=== PATIENT | female | born 1975 | race African-American/Black ===

== ENCOUNTER 2018-06-19 19:47 | Emergency (ER) | payer OTHER ==
[~2018-06-19] VITALS: Ht 157.5 cm; Wt 73.5 kg
[2018-06-19] MEDS ORDERED: AZITHROMYCIN 250 MG TABLET PO ONE (22:00)
[2018-06-19] MEDS ORDERED: AZITHROMYCIN 250 MG TABLET ONE (22:43)
--- NOTE | 2018-06-19 22:45 | NUR ---
PATIENT MEDICATED ORDERED
[2018-06-19 22:53] VITALS: BP 122/71
== END 2018-06-19 22:55 | disposition home or self-care (01) ==
LOC: ER 19:52
DX: J02.9 Acute pharyngitis, unspecified (principal); E78.5 Hyperlipidemia, unspecified; I25.2 Old myocardial infarction; F41.9 Anxiety disorder, unspecified; F32.9 Major depressive disorder, single episode, unspecified; I25.10 Atherosclerotic heart disease of native coronary artery without angina pectoris; D64.9 Anemia, unspecified; G62.9 Polyneuropathy, unspecified; Z90.710 Acquired absence of both cervix and uterus; Z98.890 Other specified postprocedural states
CPT/HCPCS: 86403-TC; 87070-TC

== ENCOUNTER 2019-03-01 13:03 | Inpatient (IN) | payer OTHER ==
[~2019-03-01] VITALS: Ht 157.5 cm; Wt 67.6 kg
--- NOTE | 2019-03-01 13:12 | NUR ---
[id number], CAME TO ER C/O "MY POTASSIUM IS LOW" PER PATIENT REPORT. RR IS EVEN AND UNLABORED WITH NAD NOTED. SKIN IS WARM AND NON DIAPHORETIC. PLACED ON THE MONITOR. AWAITING MD FOR EVAL.
[2019-03-01] MEDS ORDERED: LORAZEPAM INJ 2 MG/ML VIAL IV ONE (13:30)
[2019-03-01] MEDS ORDERED: IV NS 0.9% 1,000 ML BAG IV ONE (13:30)
[2019-03-01] MEDS ORDERED: LORAZEPAM INJ 2 MG/ML VIAL ONE (13:35)
[2019-03-01 13:38] LABS: BASOPHILS % (AUTO) 0.7 % (0.0-2.0); EOSINOPHILS % (AUTO) 3.2 % (0.0-6.0); HEMATOCRIT 34 % (33-45); HEMOGLOBIN 11.5 g/dL (11.5-14.8); LYMPHOCYTES # (AUTO) 2.1 /CMM (0.8-4.8); LYMPHOCYTES % (AUTO) 35.3 % (20.0-44.0); MEAN CORPUSCULAR HGB CONC 34 g/dl (31.0-36.0); MEAN CORPUSCULAR VOLUME 93 fL (82-100); MONOCYTES # (AUTO) 0.3 /CMM (0.1-1.30); MONOCYTES % (AUTO) 4.6 % (2.0-12.0); NEUTROPHILS # (AUTO) 3.3 /CMM (1.8-8.9); NEUTROPHILS % (AUTO) 56.2 % (43.0-81.0); PLATELET COUNT (AUTO) 560 /CMM (150-450); RED BLOOD CELL COUNT(AUTO) 3.61 MIL/uL (4.0-5.2); WHITE BLOOD COUNT (AUTO) 5.9 K/uL (4.3-11.0)
--- NOTE | 2019-03-01 13:58 | NUR ---
RAPID FLU SWAB SENT TO LAB
[2019-03-01 13:59] LABS: ALBUMIN 3.1 g/dL (3.4-5.0); BILIRUBIN,DIRECT 0.1 mg/dL (0.0-0.2); BILIRUBIN,TOTAL 0.4 mg/dL (0.2-1.0); CALCIUM, SERUM 9.1 mg/dL (8.5-10.1); CREATININE 0.9 mg/dL (0.6-1.3); TOTAL PROTEIN, SERUM 7.5 g/dL (6.4-8.2)
[2019-03-01 14:02] LABS: POTASSIUM 2.1 mmol/L (3.5-5.1)
[2019-03-01] MEDS ORDERED: POTASSIUM CL. PREMIX PERIPHER. 200 ML ONE (14:15)
[2019-03-01 14:19] LABS: MAGNESIUM 2.2 mg/dL (1.8-2.4); PHOSPHORUS 3.2 mg/dL (2.5-4.9)
[2019-03-01] MEDS ORDERED: POTASSIUM CHLORIDE 20 MEQ TAB.PRT.SR PO ONE ×2 (14:30→14:34)
[2019-03-01] MEDS: POTASSIUM CL. PREMIX PERIPHER. 50 ML IV SCH ×4 (14:31→17:30)
--- NOTE | 2019-03-01 14:35 | NUR ---
OTTONIEL LEVIN, DNP AT FOR NICHOLE.
--- NOTE | 2019-03-01 14:53 | NUR ---
verbal auth from declan for obs
[2019-03-01] MEDS ORDERED: MELO-107 PO (15:15)
[2019-03-01] MEDS ORDERED: ONDA4TAB5 PO (15:15)
[2019-03-01] MEDS ORDERED: CYAN500T64 PO (15:15)
[2019-03-01] MEDS ORDERED: GABA250S PO (15:15)
[2019-03-01] MEDS ORDERED: CYCL5TAB PO (15:15)
[2019-03-01] MEDS ORDERED: ATOR10TA PO (15:15)
[2019-03-01] MEDS ORDERED: FERR325T23 PO (15:15)
[2019-03-01] MEDS ORDERED: PREN1TAB22 PO (15:15)
[2019-03-01] MEDS ORDERED: OMEP40CA13 PO (15:15)
[2019-03-01] MEDS ORDERED: GABA250S2 PO (15:15)
[2019-03-01] MEDS ORDERED: DULO60CA45 PO (15:15)
[2019-03-01] MEDS ORDERED: ZOLP10TA6 PO (15:15)
[2019-03-01] MEDS ORDERED: PARO40TA PO (15:15)
[2019-03-01] MEDS ORDERED: CHOL200026 PO (15:15)
[2019-03-01] MEDS ORDERED: DESO15OI3 TP (15:15)
[2019-03-01] MEDS ORDERED: SUCR1TAB PO (15:15)
[2019-03-01] MEDS ORDERED: DIAZ10TA4 PO (15:15)
[2019-03-01] MEDS ORDERED: IV NS 0.9% 1,000 ML IV PRN (15:55)
[2019-03-01] MEDS ORDERED: ONDANSETRON HCL/PF 4 MG/2 ML VIAL IVP PRN (16:00)
[2019-03-01] MEDS ORDERED: ACETAMINOPHEN 325 MG TABLET PO PRN (16:00)
[2019-03-01] MEDS ORDERED: MAGNESIUM HYDROXIDE 30 ML UDC PO PRN (16:00)
[2019-03-01] MEDS ORDERED: MORPHINE SULFATE INJ 2 MG/ML DISP.SYRIN IV PRN (16:00)
[2019-03-01] MEDS ORDERED: Z GUARD REMEDY 2 OZ OINT TP PRN (16:00)
[2019-03-01] MEDS ORDERED: MAG HYDROX/AL HYDROX/SIMETH 30 ML UDC PO PRN (16:00)
[2019-03-01] MEDS ORDERED: ZOLPIDEM TARTRATE 5 MG TABLET PO PRN (16:00)
[2019-03-01] MEDS ORDERED: DESOXIMETASONE TP PRN (16:00)
[2019-03-01] MEDS ORDERED: HYDROCODONE/APAP 5/325MG 1 EACH TABLET PO PRN (16:00)
--- NOTE | 2019-03-01 18:18 | NUR ---
GOT BED 312-2
--- NOTE | 2019-03-01 18:26 | NUR ---
REPORT GIVEN TO RUDDY OF TELE UNIT
[2019-03-01 18:27] LABS: CALCIUM, SERUM 8.3 mg/dL (8.5-10.1); CREATININE 0.8 mg/dL (0.6-1.3)
[2019-03-01 18:32] LABS: POTASSIUM 2.5 mmol/L (3.5-5.1)
--- NOTE | 2019-03-01 19:19 | NUR ---
MS/RN ADMITTING NOTE Report received via telephone from [facility] in the ER. Patient arrived on the unit at 1845. Tele monitor SR 80s, BP 149/75, T 98.0, O2 95% on RA. No complaints of pain at this time. IV line in the RAC in clean and patent running the last bag of potassium started in the ER (Potassium at 50ml/hr with NS @ 150ml/hr). Patient is A/O x4, ambulatory, appears anxious with family at the bedside. Bed is in lowest position, side rails x2 in upright position, call light is within reach and patient is aware of how to call for assistance when needed. Will endorse to anchorman.
[2019-03-01 20:00] VITALS: BP 116/75
--- NOTE | 2019-03-01 21:29 | NUR ---
MS/ORQUIDEA/RN ON INITIAL SHIFT ROUND AT AROUND 19:30, RECEIVED PATIENT LYING IN BED AWAKE ALERT ORIENTED, COMFORTABLE, NO SIGNS OF DISTRESS NOTED. PATIENT WAS A NEW ADMIT DS. HYPOKALEMIA, K LEVEL IN E.R WAS 2.17, WAS REPLACED WITH KCL 4 BAGS IV, WHO ARRIVED THE FLOOR AT AROUND 1845 TODAY FROM E.R. PER DAY SHIFT RN. PATIENT LATER ON C/O OF BEING UNCOMFORTABLE OF HER IV, EXPLAINED TO THE PATIENT THAT THE POTASSIUM IS INFUSING THAT POSSIBLY CAUSING THE DISCOMFORT BUT PATIENT INSISTED TO HAVE THE IV REMOVED. THE IV WAS REMOVED AFTER THE POTASSIUM INFUSION. AT AROUND 20:00, THE PATIENT ASKED IF HER SIGNIFICANT OTHER CAN STAY OVERNIGHT, EXPLAINED TO THE PATIENT THAT PER HOSPITAL POLICY NO VISITOR CAN STAY. CHARGE NURSE ALSO TALKED TO THE PATIENT, CHARGE NURSE CALLED THE NURSING FIBER GLASS WORKER TA WHO REFUSED THE PATIENT'S REQUEST. DR. SUMANTH PEÑA WAS NOTIFIED. PATIENT MADE AWARE, PATIENT DECIDED TO GO AMA, EXPLAINED OF THE RISKS OF GOING AMA, PATIENT VERBALIZED UNDERSTANDING, PATIENT REFUSED TO SIGN THE AMA PAPERWORK. PATIENT LEFT THE FLOOR AT AROUND 21:25 IN STABLE CONDITION.
[2019-03-01] MEDS ORDERED: GABAPENTIN 100 MG CAPSULE PO SCH (22:00)
[2019-03-01] MEDS: ASPIRIN 81 MG TAB.CHEW PO SCH (23:33)
[2019-03-01] MEDS: DULOXETINE HCL 30 MG CAPSULE.DR PO SCH (23:34)
[2019-03-01] MEDS: GABAPENTIN 300 MG CAPSULE PO SCH (23:34)
[2019-03-01] MEDS: FERROUS SULFATE (325 MG) 325 MG/TAB TABLET PO SCH (23:35)
[2019-03-01] MEDS: CYCLOBENZAPRINE 10 MG TABLET PO SCH (23:35)
[2019-03-01] MEDS: DIAZEPAM 10 MG TABLET PO PRN (23:59)
[2019-03-02] VITALS: BP 112/70
--- NOTE | 2019-03-02 00:23 | NUR ---
MS/RN POTASSIUM 10 MEQ IV WAS ALREADY GIVEN PER DAY SHIFT RN REPORT.
--- NOTE | 2019-03-02 00:24 | NUR ---
MS/TELE/RN PATIENT CAME BACK AT AROUND 2230, WALKED TO THE ROOM, PATIENT WAS AWAKE, ALERT, ORIENTED, COMFORTABLE, NO C/O PAIN, NO DISTRESS NOTE, DR. SUMANTH PEÑA NOTIFIED. ADMISSION WAS DONE PER PROTOCOL, PLAN OF CARE DISCUSSED AND VERBALIZED UNDERSTANDING AND AGREEMENT TO THE PLAN, TAUGHT THE USE OF CALL LIGHT AND PLACED IT AT BEDSIDE WITHIN REACH. WILL MONITOR.
--- NOTE | 2019-03-02 01:00 | NUR ---
MS/TELE/RN PATIENT IS SLEEPING AT THIS TIME, APPEAR COMFORTABLE, NO SIGNS OF DISTRESS NOTED, CALL LIGHT IN REACH. WILL CONTINUE TO MONITOR.
[2019-03-02 04:00] VITALS: BP 114/73
--- NOTE | 2019-03-02 06:14 | NUR ---
MS/TELE/RN PATIENT IS STILL SLEEPING AT THIS TIME, APPEAR COMFORTABLE, NO SIGNS OF DISTRESS NOTED, ALL NEEDS ATTENDED AT THIS TIME, WILL CONTINUE TO MONITOR.
--- NOTE | 2019-03-02 07:20 | NUR ---
FLAKE OR SHRED ROLL OPERATOR OPENING NOTES RECEIVED PT IN BED, ASLEEP, EASILY AROUSED. A/O X4. PT TOLERATING RA, WITH NO ACUTE RESPIRATORY DISTRESS NOTED. PT DENIES PAIN OR DISCOMFORT AT THIS TIME. PT DENIES ANY CONCERNS OR QUESTIONS AT THE MOMENT WELL. ON TELEMONITORING WITH SR 86. PIV LEFT HAND G22, FLUSHED WITH NS, INTACT AND OPERATIONAL. PT KEPT COMFORTABLE IN BED. CALL LIGHT KEPT WITHIN REACH. PT'S BED IN LOWEST, LOCKED POSITION WITH SRX3. WILL CONTINUE PLAN OF CARE.
[2019-03-02 07:47] LABS: BASOPHILS % (AUTO) 0.7 % (0.0-2.0); EOSINOPHILS % (AUTO) 5.9 % (0.0-6.0); HEMATOCRIT 29 % (33-45); LYMPHOCYTES # (AUTO) 1.9 /CMM (0.8-4.8); LYMPHOCYTES % (AUTO) 44.3 % (20.0-44.0); MEAN CORPUSCULAR HGB CONC 34 g/dl (31.0-36.0); MEAN CORPUSCULAR VOLUME 94 fL (82-100); MONOCYTES # (AUTO) 0.4 /CMM (0.1-1.30); MONOCYTES % (AUTO) 9.3 % (2.0-12.0); NEUTROPHILS # (AUTO) 1.7 /CMM (1.8-8.9); NEUTROPHILS % (AUTO) 39.8 % (43.0-81.0); PLATELET COUNT (AUTO) 535 /CMM (150-450); RED BLOOD CELL COUNT(AUTO) 3.14 MIL/uL (4.0-5.2); WHITE BLOOD COUNT (AUTO) 4.3 K/uL (4.3-11.0)
[2019-03-02 07:51] LABS: CALCIUM, SERUM 8.2 mg/dL (8.5-10.1); CARBON DIOXIDE 26 mmol/L (21-32); CHLORIDE 109 mmol/L (98-107); CREATININE 0.8 mg/dL (0.6-1.3); GLUCOSE 91 mg/dL (74-106); MAGNESIUM 2.1 mg/dL (1.8-2.4); PHOSPHORUS 3.1 mg/dL (2.5-4.9); SODIUM SERUM 144 mmol/L (136-145); UREA NITROGEN, BLOOD 6 mg/dL (7-18)
[2019-03-02 08:00] VITALS: BP 123/69
[2019-03-02 08:08] LABS: CHOLESTEROL 160 mg/dL (<200); HDL CHOLESTEROL 30 mg/dL (40-60); LDL 113 mg/dL (0-99); TRIGLYCERIDES 116 mg/dL (30-150)
[2019-03-02 08:09] LABS: POTASSIUM 2.7 mmol/L (3.5-5.1)
[2019-03-02] MEDS: ASPIRIN 81 MG TAB.CHEW PO SCH (08:19)
[2019-03-02] MEDS: PANTOPRAZOLE 40 MG TABLET.DR PO SCH (08:19)
[2019-03-02] MEDS: GABAPENTIN 100 MG CAPSULE PO SCH (08:20)
[2019-03-02] MEDS: CYCLOBENZAPRINE 10 MG TABLET PO SCH ×3 (08:20→16:58)
[2019-03-02] MEDS: FERROUS SULFATE (325 MG) 325 MG/TAB TABLET PO SCH ×2 (08:20→16:58)
[2019-03-02] MEDS: CYANOCOBALAMIN 500 MCG TABLET PO SCH (08:21)
[2019-03-02] MEDS: CHOLECALCIFEROL 1,000 UNIT TABLET (VIT D3) PO SCH (08:21)
[2019-03-02] MEDS: PAROXETINE HCL 20 MG TABLET PO SCH (08:21)
[2019-03-02] MEDS: MELOXICAM 7.5 MG TABLET PO SCH (08:22)
[2019-03-02] MEDS: DULOXETINE HCL 30 MG CAPSULE.DR PO SCH ×2 (08:24→21:47)
[2019-03-02] MEDS: SUCRALFATE 1 G TABLET PO SCH (08:29)
[2019-03-02 08:50] LABS: IRON, SERUM 108 ug/dl (50-175); TOTAL IRON BINDING CAPACITY 110 ug/dl (250-450)
[2019-03-02] MEDS ORDERED: ATORVASTATIN 10 MG TABLET PO SCH (09:00)
[2019-03-02] MEDS ORDERED: CYANOCOBALAMIN 500 MCG TABLET PO SCH (09:00)
[2019-03-02] MEDS ORDERED: GABAPENTIN 100 MG CAPSULE PO SCH (09:00)
[2019-03-02 09:25] LABS: CHOLESTEROL 156 mg/dL (<200); FERRITIN 239 ng/mL (8-388); HDL CHOLESTEROL 29 mg/dL (40-60); LDL 117 mg/dL (0-99); TRIGLYCERIDES 106 mg/dL (30-150)
[2019-03-02] MEDS: DIAZEPAM 10 MG TABLET PO PRN (10:54)
[2019-03-02] MEDS: POTASSIUM CHLORIDE 20 MEQ TAB.PRT.SR PO SCH ×2 (10:54→14:30)
[2019-03-02] MEDS ORDERED: POTASSIUM CHLORIDE 10 MEQ/50 ML PREMIXED IVPB FOR PERIPHERAL LINE IV ONE (11:00)
[2019-03-02 11:17] LABS: APPEARANCE,URINE SL CLOUDY (CLEAR); BILIRUBIN,URINE NEGATIVE (NEGATIVE); BLOOD, URINE NEGATIVE Ery/uL (NEGATIVE); COLOR,URINE YELLOW (YELLOW); KETONES,URINE NEGATIVE (NEGATIVE); LEUKOCYTE ESTERASE ,URINE NEGATIVE (NEGATIVE); NITRITE, URINE NEGATIVE (NEGATIVE); PROTEIN,URINE NEGATIVE (NEGATIVE); UGLUCOSE NEGATIVE (NEGATIVE); UROBILINOGEN,URINE 0.2 EU/dL (0.2)
[2019-03-02 16:14] VITALS: BP 134/79
[2019-03-02] MEDS: CLOTRIMAZOLE/BETAMETASONE DIPROPIONATE 15 GM TUBE TP SCH (16:59)
[2019-03-02] MEDS: DIAZEPAM 5 MG TABLET PO PRN (16:59)
[2019-03-02 18:31] LABS: CALCIUM, SERUM 8.5 mg/dL (8.5-10.1); CREATININE 0.8 mg/dL (0.6-1.3); POTASSIUM 3.5 mmol/L (3.5-5.1)
--- NOTE | 2019-03-02 18:52 | NUR ---
STOCK DRIVER CLOSING NOTES PT REMAINS IN BED, AWAKE, A/O X4. PT TOLERATING RA, WITH NO ACUTE RESPIRATORY DISTRESS NOTED. PT DENIES PAIN OR DISCOMFORT AT THIS TIME. ON TELEMONITORING WITH SR 85. PIV LEFT HAND G22, FLUSHED WITH NS, INTACT AND OPERATIONAL. PT KEPT COMFORTABLE IN BED. ALL NEEDS AND CARE ATTENDED. CALL LIGHT KEPT WITHIN REACH. PT'S BED IN LOWEST, LOCKED POSITION WITH SRX3. WILL ENDORSE TO INCOMING TARGET MAN NURSE FOR FRANCESCA.
--- NOTE | 2019-03-02 19:20 | NUR ---
RN OPENING NOTES RECEIVED PATIENT AWAKE IN BED, TALKING ON THE PHONE. A/O X 4. PATIENT ABLE TO VERBALIZE NEEDS. NO SIGNS OF RESPIRATORY DISTRESS, NO SHORTNESS OF BREATH NOTED, BREATHING EVEN AND UNLABORED. TELE READING SR. NO COMPLAINTS OF PAIN OR DISCOMFORT AT THIS TIME. IV SITES L HAND #22 AND RFA #22 BOTH SL, INTACT, PATENT, NO SIGNS OF INFECTION/INFILTRATION. SAFETY PRECAUTIONS IMPLEMENTED; CALL LIGHT WITHIN REACH, BED LOW, BED LOCKED, BILATERAL UPPER SIDE RAILS UP. WILL CONTINUE TO MONITOR.
[2019-03-02 20:00] VITALS: BP 133/83
[2019-03-02 21:26] VITALS: BP 133/83
[2019-03-02] MEDS: GABAPENTIN 300 MG CAPSULE PO SCH (22:11)
[2019-03-02 23:15] LABS: CHLORIDE,URINE RANDOM 231 mmol/L (55-125); POTASSIUM RNDM,URINE 35 mmol/L (25-125); URINE SODIUM, RANDOM 161 mmol/l (40-220)
[2019-03-02 23:40] LABS: OSMOLALITY,URINE 623 mOS/kg (340-1090)
[2019-03-03] VITALS: BP 108/75
[2019-03-03 00:54] VITALS: BP 108/75
[2019-03-03] MEDS: DIAZEPAM 5 MG TABLET PO PRN ×2 (01:00→11:49)
[2019-03-03 04:00] VITALS: BP 112/61
[2019-03-03 04:19] VITALS: BP 112/61
--- NOTE | 2019-03-03 06:23 | NUR ---
RN CLOSING NOTES PATIENT IS CURRENTLY ASLEEP, EASILY AWAKENED. NO SIGNS OF RESPIRATORY DISTRESS, NO SHORTNESS OF BREATH NOTED, RESPIRATIONS EVEN AND UNLABORED. TELE READING SR. NO SIGNS OF FACIAL GRIMACING INDICATING PAIN OR DISCOMFORT AT THIS TIME. IV SITES REMAIN IN PLACE, BOTH SL, INTACT AND PATENT, NO SIGNS OF INFECTION/INFILTRATION, FLUSHED. PATIENT KEPT CLEAN, DRY AND COMFORTABLE. ALL NEEDS MET ON SHIFT. ALL DUE MEDS GIVEN ORDERED WITH NO ADVERSE EFFECTS. SAFETY PRECAUTIONS IMPLEMENTED; CALL LIGHT WITHIN REACH, BED LOW, BED LOCKED, BILATERAL UPPER SIDE RAILS UP. WILL ENDORSE TO DAY SHIFT NURSE FOR CONTINUITY OF CARE.
[2019-03-03] MEDS: PANTOPRAZOLE 40 MG TABLET.DR PO SCH ×2 (07:30→11:44)
--- NOTE | 2019-03-03 07:30 | NUR ---
ASSOCIATE MEDIA DIRECTOR OPENING NOTES RECEIVED PT IN BED, ASLEEP, EASILY AROUSED. A/O X4. PT TOLERATING RA, WITH NO ACUTE RESPIRATORY DISTRESS NOTED. PT DENIES PAIN OR DISCOMFORT AT THIS TIME. PT DENIES ANY CONCERNS OR QUESTIONS AT THE MOMENT WELL. ON TELEMONITORING WITH SR 90. PIV LEFT HAND G22 AND RFA G22, BOTH FLUSHED WITH NS, INTACT AND OPERATIONAL. PT KEPT COMFORTABLE IN BED. CALL LIGHT KEPT WITHIN REACH. PT'S BED IN LOWEST, LOCKED POSITION WITH SRX3. WILL CONTINUE PLAN OF CARE.
[2019-03-03 08:00] VITALS: BP 129/81
[2019-03-03 08:00] LABS: BASOPHILS % (AUTO) 0.8 % (0.0-2.0); EOSINOPHILS % (AUTO) 5.3 % (0.0-6.0); HEMATOCRIT 28 % (33-45); HEMOGLOBIN 9.6 g/dL (11.5-14.8); LYMPHOCYTES # (AUTO) 2.2 /CMM (0.8-4.8); LYMPHOCYTES % (AUTO) 41.6 % (20.0-44.0); MEAN CORPUSCULAR HGB CONC 34 g/dl (31.0-36.0); MEAN CORPUSCULAR VOLUME 94 fL (82-100); MONOCYTES # (AUTO) 0.5 /CMM (0.1-1.30); MONOCYTES % (AUTO) 8.9 % (2.0-12.0); NEUTROPHILS # (AUTO) 2.3 /CMM (1.8-8.9); NEUTROPHILS % (AUTO) 43.4 % (43.0-81.0); PLATELET COUNT (AUTO) 528 /CMM (150-450); WHITE BLOOD COUNT (AUTO) 5.2 K/uL (4.3-11.0)
[2019-03-03 08:53] LABS: CALCIUM, SERUM 8.6 mg/dL (8.5-10.1); CREATININE 0.8 mg/dL (0.6-1.3); POTASSIUM 3.2 mmol/L (3.5-5.1)
[2019-03-03] MEDS: FERROUS SULFATE (325 MG) 325 MG/TAB TABLET PO SCH ×3 (09:00→17:28)
[2019-03-03] MEDS: ASPIRIN 81 MG TAB.CHEW PO SCH ×2 (09:00→11:44)
[2019-03-03] MEDS: DULOXETINE HCL 30 MG CAPSULE.DR PO SCH ×2 (09:00→11:43)
[2019-03-03] MEDS: CYCLOBENZAPRINE 10 MG TABLET PO SCH ×4 (09:00→17:28)
[2019-03-03] MEDS: GABAPENTIN 100 MG CAPSULE PO SCH ×2 (09:00→11:43)
[2019-03-03] MEDS: PAROXETINE HCL 20 MG TABLET PO SCH ×2 (09:00→11:43)
[2019-03-03] MEDS: SUCRALFATE 1 G TABLET PO SCH (09:00)
[2019-03-03] MEDS: CHOLECALCIFEROL 1,000 UNIT TABLET (VIT D3) PO SCH ×2 (09:00→11:44)
[2019-03-03] MEDS: CYANOCOBALAMIN 500 MCG TABLET PO SCH ×2 (09:00→11:44)
[2019-03-03] MEDS: MELOXICAM 7.5 MG TABLET PO SCH ×2 (09:00→11:49)
--- NOTE | 2019-03-03 09:10 | NUR ---
RN NOTES PT SIGNED CONSENT FOR [facility], PT DENIES ANY ALLERGIES TO CONTRAST, EGGS, SHELLFISH. PT AWARE OF THE PROCEDURE.
[2019-03-03] MEDS: CLOTRIMAZOLE/BETAMETASONE DIPROPIONATE 15 GM TUBE TP SCH ×2 (09:13→17:29)
[2019-03-03] MEDS ORDERED: IOHEXOL-350 100 ML VIAL IV ONE ×2 (10:12→11:00)
[2019-03-03] MEDS ORDERED: CT SWABBABLE VALVE TRANS SET 1 EA INFUS.SET MC ONE ×2 (10:12→11:00)
[2019-03-03] MEDS ORDERED: IV NS 0.9% 250 ML IV ONE ×2 (10:12→11:00)
--- NOTE | 2019-03-03 10:18 | NUR ---
RN NOTES PT LEFT THE UNIT FOR [facility]. PT HAS NEW LINE LAC G18, FLUSHED WITH NS, INTACT AND OPERATIONAL.
[2019-03-03] MEDS ORDERED: METOPROLOL TARTRATE INJ 5 MG/5 ML AMPUL ONE (10:29)
[2019-03-03] MEDS ORDERED: NITROGLYCERIN 0.4 MG/TAB BOTTLE ONE (10:29)
[2019-03-03] MEDS ORDERED: NITROGLYCERIN 0.4 MG/TAB BOTTLE SL ONE (10:30)
[2019-03-03] MEDS ORDERED: IV NS 0.9% 500 ML IV PRN (10:30)
[2019-03-03] MEDS ORDERED: IV NS 0.9% 500 ML IV ONE (10:31)
[2019-03-03] MEDS: METOPROLOL TARTRATE INJ 5 MG/5 ML AMPUL IVP PRN ×2 (10:37→10:42)
[2019-03-03] MEDS: POTASSIUM CHLORIDE 20 MEQ TAB.PRT.SR PO SCH ×2 (11:34→11:49)
--- NOTE | 2019-03-03 12:00 | NUR ---
RN NOTES PT CAME BACK FROM [facility]CA PROCEDURE. PER NURSE, PT HAD NITRO AND METOPROLOL WHILE DOING THE PROCEDURE AND THEY HAD TO REATES
--- NOTE | 2019-03-03 12:05 | NUR ---
RN NOTES PT CAME BACK FROM [facility] PROCEDURE. PER NURSE, PT HAD NITRO AND METOPROLOL WHILE DOING THE PROCEDURE AND THEY HAD TO REPEAT THE REST TWICE. PT VS STABLE AT THIS TIME. BP 129/81 AND HR 75 AFTER PROCEDURE. PT DENIES ANY PAIN OR DISCOMFORT AT THIS TIME. WILL CONTINUE PLAN OF CARE.
--- NOTE | 2019-03-03 15:30 | NUR ---
RN NOTES CTCA RESULT CAME UP. HOSPITALIST/NN IN THE UNIT AND MADE AWARE. NO ORDERS AT THIS TIME.
[2019-03-03 16:00] VITALS: BP 109/60
[2019-03-03] MEDS ORDERED: ZOLP10TA2 PO (17:36)
[2019-03-03] MEDS ORDERED: POTA20TA83 PO (17:36)
[2019-03-03] MEDS ORDERED: DIAZ10TA PO (17:36)
[2019-03-03] MEDS ORDERED: CLOT12CR TP (17:40)
--- NOTE | 2019-03-03 18:21 | NUR ---
MS MAILROOM COORDINATOR NOTES PT TO DISCHARGE TO HOME. PT A/O X4. PT TOLERATING RA, WITH NO ACUTE RESPIRATORY DISTRESS NOTED. PT DENIES PAIN OR DISCOMFORT AT THE TIME OF DISCHARGE. PIVS LEFT HAND G22, LAC G18 AND RFA G22, REMOVED, APPLIED DRY DRESSING. ALL NEEDS AND CARE ATTENDED. DISCHARGE INSTRUCTIONS AND INVENTORY LIST, REVIEWED AND SIGNED BY PT. PRESCRIPTIONS SENT ELECTRONICALLY TO THE PHARMACY. CN/JR AND HOSPITALIST/NN AWARE OF DISCHARGE. PT WITH THE BROTHER LEFT THE UNIT AMBULATORY, ESCORTED BY THE VISCERA WASHER TO THE LOBBY AT 1820.
[2019-03-08 12:06] LABS: RENIN, PLASMA <0.167 ng/mL/hr (0.167-5.380)
== END 2019-03-03 18:58 | disposition home or self-care (01) | DRG 425 ==
LOC: ER 13:06 → TELE 18:25 → MED 03-03 08:58
PROVIDERS: ADMIT Nurse Practitioner Acute Care; ATTEND Nurse Practitioner Acute Care
DX: E87.6 Hypokalemia (principal); G62.9 Polyneuropathy, unspecified; I25.10 Atherosclerotic heart disease of native coronary artery without angina pectoris; E78.5 Hyperlipidemia, unspecified; B35.3 Tinea pedis; F32.9 Major depressive disorder, single episode, unspecified; I25.2 Old myocardial infarction; F41.9 Anxiety disorder, unspecified; G47.00 Insomnia, unspecified; G89.29 Other chronic pain; M79.7 Fibromyalgia; Z90.710 Acquired absence of both cervix and uterus; L30.9 Dermatitis, unspecified; K58.9 Irritable bowel syndrome, unspecified; M79.671 Pain in right foot
CPT/HCPCS: 36415; 75574; 80048-TC; 80061-TC; 80076-TC; 81000-TC; 82088; 82436-TC; 82728-TC; 83540-TC; 83735-TC; 83935-TC; 84100-TC; 84133-TC; 84244; 84300-TC; 84439-TC; 84443-TC; 84484-TC; 84703-TC; 85025-TC; 87081-TC; 93307-TC; G0378; J2060; J3480; J3490; J7030; J7040; J7050; Q9967

== ENCOUNTER 2019-03-08 21:20 | Emergency (ER) | payer OTHER ==
[~2019-03-08] VITALS: Ht 157.5 cm; Wt 73.0 kg
[~2019-03-08 21:20] MED LIST: ATOR10TA PO; CHOL200026 PO; CLOT12CR TP; CYAN500T64 PO; CYCL5TAB PO; DESO15OI3 TP; DIAZ10TA PO; DIAZ10TA4 PO; DULO60CA45 PO; FERR325T23 PO; GABA250S PO; GABA250S2 PO; MELO-107 PO; OMEP40CA13 PO; ONDA4TAB5 PO; PARO40TA PO; POTA20TA83 PO; PREN1TAB22 PO; SUCR1TAB PO; ZOLP10TA2 PO; ZOLP10TA6 PO
--- NOTE | 2019-03-08 21:31 | NUR ---
BIBS. BILAT LEG SWELLING. CHEST TIGHTNESS-NON RADIATING. 10AM, pt awake, alert, -sob, nad noted, vss, pending md reinoso
[2019-03-08 22:27] LABS: BASOPHILS # (AUTO) 0.2 /CMM (0.0-0.2); BASOPHILS % (AUTO) 2.8 % (0.0-2.0); EOSINOPHILS % (AUTO) 5.6 % (0.0-6.0); HEMATOCRIT 29 % (33-45); LYMPHOCYTES # (AUTO) 2.4 /CMM (0.8-4.8); LYMPHOCYTES % (AUTO) 37.8 % (20.0-44.0); MEAN CORPUSCULAR HGB CONC 34 g/dl (31.0-36.0); MEAN CORPUSCULAR VOLUME 95 fL (82-100); MONOCYTES # (AUTO) 0.6 /CMM (0.1-1.30); MONOCYTES % (AUTO) 9.4 % (2.0-12.0); NEUTROPHILS # (AUTO) 2.8 /CMM (1.8-8.9); NEUTROPHILS % (AUTO) 44.4 % (43.0-81.0); PLATELET COUNT (AUTO) 542 /CMM (150-450); RED BLOOD CELL COUNT(AUTO) 3.08 MIL/uL (4.0-5.2); WHITE BLOOD COUNT (AUTO) 6.2 K/uL (4.3-11.0)
[2019-03-08 22:37] LABS: CALCIUM, SERUM 8.7 mg/dL (8.5-10.1); CARBON DIOXIDE 26 mmol/L (21-32); CHLORIDE 107 mmol/L (98-107); GLUCOSE 98 mg/dL (74-106); POTASSIUM 3.6 mmol/L (3.5-5.1); SODIUM SERUM 141 mmol/L (136-145); UREA NITROGEN, BLOOD 8 mg/dL (7-18)
[2019-03-08 22:44] LABS: B-TYPE NATRIURETIC PEPTIDE 253 PG/ML (0-125)
[2019-03-08 23:19] VITALS: BP 126/108
--- NOTE | 2019-03-08 23:48 | NUR ---
Patient discharged to home in stable condition. Written and verbal after care instructions given. Patient verbalizes understanding of instruction. IV removed. Catheter intact and site benign. Pressure and 4x4 applied to site. No bleeding noted.
== END 2019-03-08 23:49 | disposition home or self-care (01) ==
LOC: ER 21:24
DX: R60.0 Localized edema (principal); I10 Essential (primary) hypertension; G62.9 Polyneuropathy, unspecified; F41.9 Anxiety disorder, unspecified; F32.9 Major depressive disorder, single episode, unspecified; D64.9 Anemia, unspecified; E78.5 Hyperlipidemia, unspecified; Z90.710 Acquired absence of both cervix and uterus; Z98.890 Other specified postprocedural states; Z79.899 Other long term (current) drug therapy
CPT/HCPCS: 36415; 71045-TC; 80048-TC; 83735-TC; 83880; 84484-TC; 85025-TC

== ENCOUNTER 2019-05-06 15:10 | Emergency (ER) | payer OTHER ==
[~2019-05-06] VITALS: Ht 152.4 cm; Wt 69.9 kg
[2019-05-06 15:20] VITALS: BP 124/62
[2019-05-06 15:57] LABS: CALCIUM, SERUM 8.4 mg/dL (8.5-10.1); CREATININE 1.1 mg/dL (0.6-1.3); POTASSIUM 3.2 mmol/L (3.5-5.1)
[2019-05-06 16:13] LABS: BASOPHILS # (AUTO) 0.1 /CMM (0.0-0.2); HEMATOCRIT 30 % (33-45); HEMOGLOBIN 10.3 g/dL (11.5-14.8); LYMPHOCYTES # (AUTO) 2.1 /CMM (0.8-4.8); LYMPHOCYTES % (AUTO) 34.6 % (20.0-44.0); MEAN CORPUSCULAR HGB CONC 34 g/dl (31.0-36.0); MEAN CORPUSCULAR VOLUME 96 fL (82-100); MONOCYTES # (AUTO) 0.4 /CMM (0.1-1.30); MONOCYTES % (AUTO) 5.9 % (2.0-12.0); NEUTROPHILS # (AUTO) 3.2 /CMM (1.8-8.9); NEUTROPHILS % (AUTO) 54.5 % (43.0-81.0); PLATELET COUNT (AUTO) 325 /CMM (150-450); RED BLOOD CELL COUNT(AUTO) 3.17 MIL/uL (4.0-5.2); WHITE BLOOD COUNT (AUTO) 5.9 K/uL (4.3-11.0)
[2019-05-06] MEDS ORDERED: POTASSIUM CHLORIDE 20 MEQ TAB.PRT.SR PO ONE ×3 (16:29→16:34)
== END 2019-05-06 17:08 | disposition home or self-care (01) ==
LOC: ER 15:13
DX: R53.1 Weakness (principal); R19.7 Diarrhea, unspecified; I10 Essential (primary) hypertension; G62.9 Polyneuropathy, unspecified; F41.9 Anxiety disorder, unspecified; F32.9 Major depressive disorder, single episode, unspecified; D64.9 Anemia, unspecified; E78.5 Hyperlipidemia, unspecified; G47.00 Insomnia, unspecified; Z98.890 Other specified postprocedural states; Z79.899 Other long term (current) drug therapy
CPT/HCPCS: 36415; 80048-TC; 85025-TC